=== PATIENT | male | born 1950 | race Caucasian/White ===

== ENCOUNTER 2021-02-03 15:22 | Emergency (ER) | payer MEDICARE, OTHER ==
[~2021-02-03 15:22] MED LIST: ALDACTONE25 MG PO; CLARITIN10 MG PO; COREG 3.125M3.125 MG PO; LASIX40 MG PO; LEVAQUIN500 MG PO; NORCO 7.5-3251 EACH PO; PRINIVIL5 MG PO; VITAMIN D31000 UNI1 PO
[2021-02-03 16:20] LABS: HEMOGLOBIN 15.5 gm/dl (14.0-17.5); RED BLOOD COUNT 5.32 M/UL (4.20-5.50); WHITE BLOOD COUNT 9.5 K/UL (4.5-11.0)
[2021-02-03 16:32] LABS: BUN/CREATININE RATIO 14 (0-10)
== END 2021-02-03 19:30 | disposition home or self-care (01) ==
LOC: ER1 15:22
PROVIDERS: Emergency Medicine
DX: Z23 Encounter for immunization (principal); U07.1 COVID-19; R55 Syncope and collapse; I11.0 Hypertensive heart disease with heart failure; I50.9 Heart failure, unspecified
CPT/HCPCS: 71045; 80053; 82550; 82553; 83874; 84484; 85025; 93005; 99284; M0243; Q0244